=== PATIENT | female | born 1985 | race Caucasian/White ===

== ENCOUNTER 2016-08-12 09:00 | Inpatient (IN) | payer OTHER ==
--- NOTE | ~2016-08-12 | PN ---
Unit #: [id number] #: [id number] Patient: DARIAN RITTER [id number] [facility] [address] [place] [address] [id number] MR#: [id number] NAME: DARIAN RITTER ROOM: [facility] Age: 31 Sex: F Admission Date: 08/12/2016 : 1985 Attending Physician: Abelino Clark M.D. Admitting Physician: Abelino Clark M.D. Primary Care Physician: Primary Care Physician Sharon ANTONIO PROGRESS NOTES DATE 08/13/2016 DISCUSSION The patient remains in significant physical distress related to opioid withdrawal during today's interview. I have encouraged her to avail herself with prescribed p.r.n.s and to participate within the therapeutic milieu once able to do so. Dictated by... Abelino Clark M.D. CB/alphonso TD: 08/14/2016 06:21 JOB #: [id number] PAC[facility] MACIEL NOTES Page 1 of 1 X Abelino Clark MD PROGRESS NOTE
--- NOTE | ~2016-08-12 | PN ---
Unit #: [id number] #: [id number] Patient: DARIAN RITTER [id number] [facility] [address] [place] [address] [id number] MR#: [id number] NAME: DARIAN RITTER ROOM: [facility] Age: 31 Sex: F Admission Date: 08/12/2016 : 1985 Attending Physician: Abelino Clark M.D. Admitting Physician: Abelino Clark M.D. Primary Care Physician: Primary Care Physician Sharon ANTONIO PROGRESS NOTES DATE 08/14/2016 DISCUSSION The patient seems to be in brighter spirits today. She is complaining only of some dizziness and lightheadedness but reports that her symptoms of opioid withdrawal have otherwise mitigated significantly. She hopes to go to return to "[facility]" as early as tomorrow. Dictated by... Abelino Clark M.D. CB/bzg TD: 08/14/2016 14:17 JOB #: [id number] PACO PROGRESS NOTES Page 1 of 1 X Abelino Clark MD PROGRESS NOTE
--- NOTE | ~2016-08-12 | DS ---
Unit #: [id number] #: [id number] Patient: DARIAN RITTER [id number] [place] [address] [id number] MR#: [id number] NAME: DARIAN RITTER ROOM: [facility] Age: 31 Sex: F Admission Date: 08/12/2016 : 1985 Discharge Date: 08/15/2016 Attending Physician: Abelino Clark M.D. Primary Care Physician: Primary Care Physician No DISCHARGE SUMMARY REASON FOR ADMISSION The patient is a 31-year-old white female, admitted with a history of opioid dependence. HOSPITAL COURSE The patient was admitted to the [facility] unit and placed on routine detoxification protocol for opioids. Her stay in the hospital was a brief and uneventful one. By 08/15/2016, she had made arrangements to go to "[facility]" and requested discharge and it was so ordered. FINAL DIAGNOSIS Opioid use disorder. DISPOSITION ON DISCHARGE The patient is discharged on no psychotropic or other medications. FOLLOWUP Followup will take place through the auspices of community mental health resources. PROGNOSIS Considered fair. Dictated by... Abelino Clark M.D. TAYLOR/calvin TD: 08/16/2016 17:32 JOB #: [id number] DISCHARGE SUMMARY Page 1 of 1 X Abelino Clark MD X DISCHARGE SUMMARY
--- NOTE | ~2016-08-12 | HP ---
Unit #: [id number] #: [id number] Patient: ANA RITTER [id number] [place] [address] [id number] I MR#: [id number] NAME: ANA RITTER ROOM: [facility] Age: 31 Sex: F Admission Date: 08/12/2016 : 1985 Attending Physician: Aeblino Clark M.D. Admitting Physician: Abelino Clark M.D. Primary Care Physician: No Primary Care Physician HISTORY AND PHYSICAL HISTORY OF PRESENT ILLNESS Ana is a 31-year-old admitted to [facility] because of her drug use. She shoots heroin. PAST MEDICAL HISTORY 1. Long history of illicit substance abuse to include IV heroin. 2. Seizure disorder. 3. History of kidney stones. PAST SURGICAL HISTORY 1. Numerous lithotripsies. 2. Ectopic with loss of tube and ovary. ALLERGIES No known drug allergies. SOCIAL HISTORY Smokes two packs per day. Denies alcohol. Admits to a long history of illicit substance abuse to include IV heroin. FAMILY HISTORY Medically noncontributory. REVIEW OF SYSTEMS CONSTITUTIONAL: No fever or chills. HEENT: Denies any sore throat, ear pain or runny nose. CARDIOVASCULAR: Denies chest pain, irregular heart rhythm or palpitations. CHEST: Denies shortness of breath or cough. No hemoptysis. GASTROINTESTINAL: Denies nausea, vomiting, diarrhea or chronic constipation. ENDOCRINE: Denies history of increased thirst or urination. No recent significant weight loss or gain. GENITOURINARY: Denies dysuria, frequency, or hematuria. SKIN: Denies any rashes. HEMATOLOGIC: Denies history of increased bleeding or bruising. MUSCULOSKELETAL: Denies any hot, swollen joints. No generalized muscle pain. NEUROLOGIC: Denies problems with vision or speech. No frequent, severe headaches. No numbness, tingling or weakness in any extremities. Denies loss of bladder or bowel control. CURRENT MEDICATIONS 1. Detox protocol. Unit #: [id number] #: [id number] Patient: ANA RITTER 2. Keppra 500 mg b.i.d. PHYSICAL EXAMINATION GENERAL: Alert, well nourished, and in no apparent distress. VITAL SIGNS: Blood pressure 120/80, heart rate 100, respirations 16, temperature 98.6, weight 168 pounds, and height 5 feet, 6 inches. SKIN: Warm and dry without rash or lesion. HEENT: Normocephalic. TMs not viewed. Oral and nasal passages clear. Conjunctivae clear. PERRLA. EOMs intact. NECK: Supple without lymphadenopathy or thyromegaly. HEART: Regular rate and rhythm without murmur. LUNGS: Clear. ABDOMEN: Soft, nontender. : Not done. EXTREMITIES: No evidence of cyanosis, clubbing or edema. Moves all without focal deficit. NEUROLOGICAL: Grossly within normal limits. Cranial Nerves: II: Visual ramirez are intact. III, IV AND : Extraocular movements are intact. Pupils are equal, round and reactive to light. V: Facial sensation is grossly normal. VII: Facial movements and expression are normal. VIII: Auditory acuity grossly intact. IX, X: Uvula is midline. Phonation is normal. XI: Patient shrugs shoulders and turns head normally. XII: Tongue protrudes in the midline. Sensory and Motor Function: Sensory and motor sensation is grossly normal. Motor: moves all extremities well. Coordination: Gait is normal. Deep Tendon Reflexes: Intact. IMPRESSION Psychiatric admission. RECOMMENDATIONS PSYCHIATRIC: Per psychiatrist. MEDICAL: I see no contraindication to participating in facility's activities. MEDICAL PROGNOSIS Good. MEDICAL CONDITION Stable. Dictated by... Zari HendricksAWesley. for Daryn Lynn/shelby TD: 08/13/2016 08:56 JOB #: [id number] Unit #: [id number] #: [id number] Patient: ANA RITTER HISTORY AND PHYSICAL Page 1 of 1 X Monica Solano HISTORY AND PHYSICAL
--- NOTE | ~2016-08-12 | PN ---
Unit #: [id number] #: [id number] Patient: DARIAN RITTER [id number] [facility] [address] [place] [address] [id number] MR#: [id number] NAME: DARIAN RITTER ROOM: [facility] Age: 31 Sex: F Admission Date: 08/12/2016 : 1985 Attending Physician: Abelino Clark M.D. Admitting Physician: Abelino Clark M.D. Primary Care Physician: Primary Care Physician Sharon ANTONIO PROGRESS NOTES DATE 08/15/2016 DISCUSSION The patient is abed though she does appear to be in more physical discomfort today and states that she needs "another day to detox" We will continue current treatment. Dictated by... Abelino Clark M.D. CB/alphonso TD: 08/16/2016 02:51 JOB #: [id number] [facility] PROGRESS NOTES Page 1 of 1 X Abelino Clark MD X PROGRESS NOTE
--- NOTE | ~2016-08-12 | PA ---
Unit #: [id number] #: [id number] Patient: DARIAN RITTER [id number] [facility] [address] [place] [address] [id number] I MR#: [id number] NAME: DARIAN RITTER ROOM: [facility] Age: 31 Sex: F Admission Date: 08/12/2016 : 1985 Date of Assessment: 08/12/2016 Attending Physician: Abelino Clark M.D. Admitting Physician: Abelino Clark M.D. Primary Care Physician: Primary Care Physician No PSYCHIATRIC ASSESSMENT IDENTIFYING INFORMATION The patient is a 31-year-old white female admitted to the [address] [place] [address] with a history of methamphetamine and heroin abuse. CHIEF COMPLAINT "Wanted to detox." INFORMANT(S) Patient, reliability is good. HISTORY OF PRESENT ILLNESS The patient is a 31-year-old single white female who was admitted for opioid detox. The patient reports that she had been admitted to this facility "a couple of times in the past" and has also been at the [facility]. She reports a history of intravenous heroin and methamphetamine abuse. The patient reports that she was recently released from [facility] after having been arrested in [place], [place], for possession of heroin and paraphernalia. She had been released from [facility] on fraudulent credit card charges earlier in February of 2016. The patient reports that she apparently faces the aforementioned charges in [place]. The patient admits to abuse of methamphetamine and heroin by means of intravenous administration. The patient was reporting passive suicidal ideation during interview yesterday. The patient reports history of diagnosis with bipolar disorder and reports a history of positive response to Seroquel. She is currently denying suicidal or homicidal ideation and denies any psychotic symptoms. PAST PSYCHIATRIC HISTORY As above. PAST MEDICAL HISTORY Noncontributory. MEDICATIONS None. ALLERGIES None. FAMILY HISTORY Noncontributory. SOCIAL HISTORY Unit #: [id number] #: [id number] Patient: DARIAN RITTER The patient is presently homeless. She reports substance use as noted previously and is a smoker. MENTAL STATUS EXAMINATION Examination at this time reveals the patient to be a well-developed well-nourished heavily tattooed white female appearing stated age. She is in no apparent physical distress at the time of examination. She is awake, alert, and oriented in all spheres. Her mood is dysphoric, her affect blunted. Speech is generally well-coherent. There are no gross deficits in memory or cognition noted. Intelligence is judged to be in the average range based on fund of knowledge. The patient is cooperative throughout the interview. She is currently denying active suicidal ideation but does report passive suicidal ideation. She denies any psychotic symptoms. Her judgment and insight appear to be reasonably intact. ASSETS AND LIABILITIES The patient's assets: Motivation for change. Liabilities: Lack of resources, homelessness, legal status. DIAGNOSTIC IMPRESSION 1. Opioid use disorder. 2. Methamphetamine use disorder. 3. Dysthymic disorder. TREATMENT PLAN The patient remains hospitalized for safety and stabilization. Routine detoxification protocol for opioids has been initiated. Suicide precautions are in place. The patient will participate in appropriate order of milieu activities. I will ask the social media manager regarding post-discharge treatment options. ESTIMATED LENGTH OF STAY 5 to 7 days. Dictated by... Abelino Clark M.D. TAYLOR/danette TD: 08/13/2016 06:48 JOB #: [id number] PSYCHIATRIC ASSESSMENT Page 1 of 1 X Abelino Clark MD X PSYCHIATRIC ASSESSMENT
[2016-08-13 09:54] LABS: BASOPHIL# 0.1 X10e3 (0-0.3); BASOPHIL% 0.7 % (0-2.5); EOSINOPHIL# 0.3 X10e3 (0-0.7); EOSINOPHIL% 4.3 % (0.0-7.0); HEMATOCRIT 32.6 % (35.0-45.0); HEMOGLOBIN 10.7 gm/dL (12.0-16.0); LYMPHOCYTE# 2.8 X10e3 (1.0-3.5); LYMPHOCYTE% 36.2 % (17.0-45.0); MEAN CELL VOLUME 85.6 FL (83-96); MEAN CORPUSCULAR HEMOGLOBIN 28.1 PG (28-34); MEAN CORPUSCULAR HGB CONC 32.8 g/dL (30-36); MEAN PLATELET VOLUME 8.5 FL (6.5-11.5); MONOCYTE# 0.7 X10e3 (0-1.0); MONOCYTE% 9.5 % (3.0-12.0); NEUTROPHIL# 3.8 X10e3 (1.5-7.1); NEUTROPHIL% 49.3 % (40-75); PLATELET COUNT 321 X10e3 (140-420); RED BLOOD COUNT 3.81 X10e (3.90-5.30); RED CELL DISTRIBUTION WIDTH 16.3 % (11.0-15.5); WHITE BLOOD COUNT 7.6 X10e3 (4.0-10.5)
[2016-08-13 09:55] LABS: DIFF IND NO
[2016-08-13 10:12] LABS: ALBUMIN SERUM 3.1 g/dL (3.5-5.0); BILIRUBIN,TOTAL 0.7 mg/dL (0.2-2.0); BUN/CREATININE RATIO 15.71; CALCIUM SERUM 8.7 mg/dL (8.4-10.2); CREATININE SERUM 0.7 mg/dL (0.6-1.4); GLOM FILT RATE Estimated 117.1 mL/min (>60); POTASSIUM 3.9 mmol/L (3.5-5.1); PROTEIN TOTAL SERUM 6.1 g/dL (6.0-8.3)
[2016-08-15 11:46] LABS: URINE APPEARANCE CLOUDY; URINE BILIRUBIN NEG (NEG); URINE BLOOD 1+ (NEG); URINE COLOR YELLOW; URINE GLUCOSE NEG (NEG); URINE KETONE NEG (NEG); URINE LEUKOCYTE ESTERASE 2+ (NEG); URINE NITRATE NEG (NEG); URINE PROTEIN TRACE (NEG); URINE SPECIFIC GRAVITY 1.021 (1.003-1.035)
[2016-08-15 11:49] LABS: URINE BACTERIA AUWI 4+ (NEGATIVE); URINE SQUAMOUS EPITHELIAL CELL NONE SEEN /[HPF]; UWBCS1 AUWI 50-100 (0-5)
[2016-08-15 12:23] LABS: AMPHETAMINE POS (NEG); BARBITURATES NEG (NEG); BENZODIAZEPINES NEG (NEG); COCAINE NEG (NEG); MARIJUANA NEG (NEG); OPIATES NEG (NEG); TRICYCLIC ANTIDEPRESSANTS NEG (NEG); U METHADONE POS (NEG)
== END 2016-08-15 13:06 | disposition home or self-care (01) | DRG 897 ==
LOC: P1E 11:47
PROVIDERS: Specialist
PROC: HZ2ZZZZ Detoxification Services for Substance Abuse Treatment (ICD-10-PCS; principal; 2016-08-12)
DX: F11.10 Opioid abuse, uncomplicated (principal); F15.10 Other stimulant abuse, uncomplicated; F17.210 Nicotine dependence, cigarettes, uncomplicated; F34.1 Dysthymic disorder; Z87.442 Personal history of urinary calculi; G40.909 Epilepsy, unspecified, not intractable, without status epilepticus
CPT/HCPCS: 80053; 80307; 81003; 84703; 85025; 86592